=== PATIENT | male | born 1970 | race Caucasian/White ===

== ENCOUNTER → 2017-02-03 | Day surgery (SDC) | payer OTHER ==
[~2017-02-03] MED LIST: Ketorolac 30 MG/ML SDV ONE; Sodium Chloride 0.9% 100 ML ONE
--- NOTE | 2017-02-03 17:42 | PCM.PREANE ---
Preanesthetic Assessment - Anesthesia/Transfusion/Family Hx Anesthesia History: Prior Anesthesia Without Reaction Family History of Anesthesia Reaction: No Transfusion History: No Prior Transfusion(s) - Review of Systems General: No Symptoms Pulmonary: No Symptoms Cardiovascular: No Symptoms Gastrointestinal: Decreased Appetite Neurological: No Symptoms Other: Reports: None - Physical Assessment NPO Status Date: 02/03/17 NPO Status Time: 09:00 Pulse: 103 O2 Sat by Pulse Oximetry: 94 Respiratory Rate: 18 Blood Pressure: 161/87 Temperature: 36.8 C Vital Signs: Last Vital Signs Temp 36.8 C 02/03/17 17:24 Pulse 103 H 02/03/17 17:24 Resp 18 02/03/17 17:24 BP 161/87 H 02/03/17 17:24 Pulse Ox 94 L 02/03/17 17:24 Weight: 155.582 kg ASA Class: 2 Mental Status: Alert & Oriented x3 Airway Class: Mallampati = 1 Dentition: Reports: Normal Dentition Thyro-Mental Finger Breadths: 3 Mouth Opening Finger Breadths: 3 ROM/Head Extension: Full Lungs: Clear to Auscultation, Normal Respiratory Effort Cardiovascular: Regular Rate, Regular Rhythm, No Murmurs - Allergies Allergies/Adverse Reactions: Allergies Allergy/AdvReac Type Severity Reaction Status Date / Time No Known Allergies Allergy Verified 02/03/17 17:26 - Anesthesia Plan Pre-Op Medication Ordered: None - Acknowledgements Anesthesia Type Planned: MAC Pt an Appropriate Candidate for the Planned Anesthesia: Yes Alternatives and Risks of Anesthesia Discussed w Pt/Guardian: Yes Pt/Guardian Understands and Agrees with Anesthesia Plan: Yes PreAnesthesia Questionnaire Other Gastrointestinal History: hernia abdominal - SUBSTANCE USE Smoking Status *Q: Current Some Day Smoker Tobacco Use Within Last Twelve Months: Cigarettes Second Hand Smoke Exposure: Yes - HOME MEDS Home Medications: Home Meds Hydrocodone/Acetaminophen [Hydrocodon-Acetaminophn 10-325] 1 tab PO Q4H PRN [History] Omeprazole 20 mg PO DAILY 02/03/17 [History] Sulfamethoxazole/Trimethoprim [Bactrim Ds Tablet] 1 tab PO DAILY 02/03/17 [ History]
== END ==
LOC: JD.ED 17:20 → JD.SDS 17:41
PROVIDERS: ATTEND Surgery
DX: L02.31 Cutaneous abscess of buttock (principal); B19.20 Unspecified viral hepatitis C without hepatic coma; K29.60 Other gastritis without bleeding; F17.210 Nicotine dependence, cigarettes, uncomplicated; Z79.899 Other long term (current) drug therapy; Z90.49 Acquired absence of other specified parts of digestive tract
CPT/HCPCS: 10060; 99284; J7030; 00902

== ENCOUNTER 2017-08-05 08:00 | Day surgery (SDC) | payer BC ==
[~2017-08-05 08:00] MED LIST changes: -Ketorolac 30 MG/ML SDV ONE; +Lactated Ringers 1,000 ML IV SCH; +Lidocaine 1%/Sod Bicarbonate in NS 8.4% 1 ML Syringe IDERM PRN; +Lidocaine 1%/Sod Bicarbonate in NS 8.4% 1 ML Syringe IV PRN; +Lidocaine 1%/Sod Bicarbonate in NS 8.4% 1 ML Syringe PRN; +Sodium Chloride 0.9% 10 ML Syringe FLUSH PRN; -Sodium Chloride 0.9% 100 ML ONE
[2017-08-05] MEDS ORDERED: Lidocaine 1% with EPINEPHrine 1:100,000 20 ML MDV ONE (08:12)
[2017-08-05] MEDS ORDERED: Bupivacaine 0.5%/EPINEPHrine 1:200,000 50 ML MDV ONE (08:12)
--- NOTE | 2017-08-05 08:44 | PCM.PREANE ---
Preanesthetic Assessment - Anesthesia/Transfusion/Family Hx Anesthesia History: Prior Anesthesia Without Reaction Family History of Anesthesia Reaction: No Transfusion History: No Prior Transfusion(s) - Review of Systems General: No Symptoms Pulmonary: No Symptoms (Smoker, < 1 pack per day. Last cigarette yesterday evening. ) Cardiovascular: No Symptoms Gastrointestinal: Other (Heart burn controlled with his medications. Took omeprazole this morning. Denies current symptoms. ) Neurological: No Symptoms Other: Reports: None (Obesity ) - Physical Assessment NPO Status Date: 08/04/17 Pulse: 20 O2 Sat by Pulse Oximetry: 94 Respiratory Rate: 20 Blood Pressure: 144/75 Temperature: 36.6 C Weight: 150.593 kg ASA Class: 2 Mental Status: Alert & Oriented x3 Airway Class: Mallampati = 3 Dentition: Reports: Missing Tooth/Teeth, Caries Thyro-Mental Finger Breadths: 3 Mouth Opening Finger Breadths: 3 ROM/Head Extension: Full Lungs: Clear to Auscultation, Normal Respiratory Effort Cardiovascular: Regular Rate, Regular Rhythm - Allergies Allergies/Adverse Reactions: Allergies Allergy/AdvReac Type Severity Reaction Status Date / Time No Known Allergies Allergy Verified 08/04/17 14:17 - Acknowledgements Anesthesia Type Planned: General Anesthesia Pt an Appropriate Candidate for the Planned Anesthesia: Yes Alternatives and Risks of Anesthesia Discussed w Pt/Guardian: Yes Pt/Guardian Understands and Agrees with Anesthesia Plan: Yes PreAnesthesia Questionnaire HEENT History: Reports: None Cardiovascular History: Reports: None Respiratory History: Reports: SOB Other Gastrointestinal History: ventral hernia, pilonidal cyst with abcess, reflux gastritis Genitourinary History: Reports: None Musculoskeletal History: Reports: None Neurological History: Reports: None Psychiatric History: Reports: Addiction Endocrine/Metabolic History: Reports: None Hematologic History: Reports: None Immunologic History: Reports: None Oncologic (Cancer) History: Reports: None Dermatologic History: Reports: Cellulitis - Past Surgical History Head Surgeries/Procedures: Reports: None HEENT Surgical History: Reports: None Cardiovascular Surgical History: Reports: None Respiratory Surgical History: Reports: None GI Surgical History: Reports: Appendectomy Female Surgical History: Reports: None Male Surgical History: Endocrine Surgical History: Reports: None Neurological Surgical History: Reports: None Musculoskeletal Surgical History: Reports: None Oncologic Surgical History: Reports: None Dermatological Surgical History: Reports: None - SUBSTANCE USE Smoking Status *Q: Current Every Day Smoker Tobacco Use Within Last Twelve Months: Cigarettes Second Hand Smoke Exposure: Yes Recreational Drug Use History: No - HOME MEDS Home Medications: Home Meds Omeprazole 20 mg PO DAILY 02/03/17 [History] Ibuprofen 1 - 3 tab PO Q6H PRN 08/04/17 [History] Sulfamethoxazole/Trimethoprim [Bactrim 400-80 MG] 800,160 mg PO BID 08/05/17 [ History] - CURRENT (IN HOUSE) MEDS Current Meds: Current Medications Lactated Ringer's (Ringers, Lactated) 1,000 mls @ 125 mls/hr IV ASDIRECTED [facility] Stop: 08/05/17 23:00 Lidocaine/Sodium Bicarbonate (Buffered Lidocaine 1% In Ns 8.4%) 0.25 ml IDERM ONETIME PRN PRN Reason: Prior to IV Start Stop: 08/05/17 18:00 Sodium Chloride (Saline Flush) 10 ml FLUSH ASDIRECTED PRN PRN Reason: Keep Vein Open Stop: 08/05/17 18:00 Discontinued Medications Bupivacaine HCl/Epinephrine Bitart (Marcaine 0.5%/Epinephrine 1:200,000) Confirm Administered Dose 50 ml .ROUTE .STK-MED ONE Stop: 08/05/17 08:13 Lactated Ringer's (Ringers, Lactated) 1,000 mls @ 125 mls/hr IV ASDIRECTED [facility] Stop: 03/28/17 23:00 Lidocaine/Epinephrine (Xylocaine 1% With Epinephrine 1:100,000) Confirm Administered Dose 20 ml .ROUTE .STK-MED ONE Stop: 08/05/17 08:13 Lidocaine/Sodium Bicarbonate (Buffered Lidocaine 1% In Ns 8.4%) 0.25 ml IV ONETIME PRN PRN Reason: Prior to IV Start Lidocaine/Sodium Bicarbonate (Buffered Lidocaine 1% In Ns 8.4%) 0.25 ml .XX ONETIME PRN PRN Reason: Prior to IV Start Stop: 03/28/17 18:00 Sodium Chloride (Saline Flush) 10 ml FLUSH ASDIRECTED PRN PRN Reason: Keep Vein Open Stop: 03/28/17 18:00
[2017-08-05] MEDS ORDERED: Rocuronium 50 MG/5 ML Vial ONE (08:53)
[2017-08-05] MEDS ORDERED: Ondansetron 4 MG/2 ML SDV ONE (08:53)
[2017-08-05] MEDS ORDERED: Lidocaine 1% 4 ML ONE (08:53)
[2017-08-05] MEDS ORDERED: Propofol 200 MG/20 ML SDV ONE (08:53)
[2017-08-05] MEDS ORDERED: fentaNYL 250 MCG/5 ML SDV ONE (08:54)
[2017-08-05] MEDS ORDERED: ceFAZolin 1 GM Vial ONE ×2 (08:54→08:57)
[2017-08-05] MEDS ORDERED: Midazolam 1 MG/ML 2 ML SDV ONE (08:54)
[2017-08-05] MEDS ORDERED: Lanolin/Mineral Oil/Petrolatum Ophth Oint 3.5 GM Tube ONE (09:54)
[2017-08-05] MEDS ORDERED: Albuterol 6.7 GM Inhaler INH ONE (10:04)
[2017-08-05] MEDS ORDERED: Neostigmine Methylsulfate 1 MG/ML 5 ML Syringe ONE (10:11)
[2017-08-05] MEDS ORDERED: Ondansetron 4 MG/2 ML SDV IVPUSH PRN (10:13)
[2017-08-05] MEDS ORDERED: fentaNYL 100 MCG/2 ML SDV IVPUSH PRN (10:13)
[2017-08-05] MEDS ORDERED: HYDROmorphone 0.5 MG/0.5 ML Syringe IVPUSH PRN (10:13)
[2017-08-05] MEDS ORDERED: Lactated Ringers 1,000 ML ONE (10:24)
--- NOTE | 2017-08-05 10:42 | PCM.POSTAN ---
POST ANESTHESIA ASSESSMENT - MENTAL STATUS Mental Status: Alert, Oriented - VITAL SIGNS Pulse Rate: 82 SaO2: 94 Resp Rate: 23 Blood Pressure: 144/69 Temperature: 98.3 F - RESPIRATORY Respiratory Status: Respiratory Rate WNL, Airway Patent, O2 Saturation Stable, Supplemental Oxygen - CARDIOVASCULAR CV Status: Pulse Rate WNL, Blood Pressure Stable - GASTROINTESTINAL GI Status: No Symptoms - PAIN Pain Score: 0 - POST OP HYDRATION Hydration Status: Adequate & Stable
--- NOTE | 2017-08-05 10:42 | PCM.OPNOTE ---
- General Post-Op/Procedure Note Date of Surgery/Procedure: 08/05/17 Operative Procedure(s): Incision and drainage of a pilonidal abscess with unroofing of a long pilonidal sinus Findings: Right buttock small abscess containing 2 mL of pus. 2 long sinus tracts which were unroofed. 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 I clipper prepped the area of all hair. The intergluteal fold was then prepped with Betadine and draped sterilely. 10 mL of local analgesia was infused into the area of the pilonidal cyst and sinus. I probed the sinus tract and this revealed a 2 cm sinus. Just right lateral to the inter gluteal cleft there was a area of induration which drained 2 mL of pus once I opened the tract over the probe. I then opened a 5 cm area of the intergluteal fold in the midline and then carried this unroofing right laterally for about 3 cm with cautery. Hemostasis was obtained with cautery as well. The unroofing extended to yellow non-chronically inflamed or infected fat. I then packed the surgery site with 2 inch iodoform gauze. I didn't close the unroofing area because of the pus that was present.
[2017-08-05] MEDS ORDERED: Albuterol/Ipratropium 3.0-0.5 MG/3 ML Neb Soln NEB PRN (10:43)
--- NOTE | 2017-08-05 12:10 | PCM48HPAN ---
Post Anesthesia Note - EVALUATION WITHIN 48HRS OF ANESTHETIC Vital Signs in Normal Range: Yes Patient Participated in Evaluation: Yes Respiratory Function Stable: Yes Airway Patent: Yes Cardiovascular Function Stable: Yes Hydration Status Stable: Yes Pain Control Satisfactory: Yes Nausea and Vomiting Control Satisfactory: Yes Mental Status Recovered: Yes
[2017-08-05 14:19] VITALS: BP 129/69
== END 2017-08-05 12:15 | disposition home or self-care (01) ==
LOC: JD.SDS 08:00
PROVIDERS: ATTEND Surgery
DX: L05.01 Pilonidal cyst with abscess (principal); F17.210 Nicotine dependence, cigarettes, uncomplicated; K21.9 Gastro-esophageal reflux disease without esophagitis; Z79.899 Other long term (current) drug therapy
CPT/HCPCS: 94640; A9270; A9270-GY; J0690; J2250; J2405; J2704; J2710; J3010; J7120

== ENCOUNTER 2021-01-01 18:00 | Emergency (ER) | payer BC ==
--- NOTE | 2021-01-01 18:39 | EDM.PDOC ---
ED HPI GENERAL MEDICAL PROBLEM - General Chief Complaint: Lower Extremity Injury/Pain Stated Complaint: LEG PAIN SWELLING AND HOT Time Seen by Provider: 01/01/21 18:37 Source of Information: Reports: Patient History Limitations: Reports: No Limitations - History of Present Illness INITIAL COMMENTS - FREE TEXT/NARRATIVE: Patient is a 50-year-old male who is complaining of having pain to his right upper calf after stepping off the back of a truck 2 weeks ago and hyperflexing his ankle. At time of injury patient heard and felt a popping sensation in his pain since. He is able to ambulate with limited activity every time he fully flexes the ankle he has pain in the upper calf. Patient does drive a truck for living but based on his story I feel this was traumatic in nature and is not a DVT. There is been no change in warmth or color of his lower extremity. Patient does have some tingling down to his foot since the injury. He denies any shortness of breath or Covid symptoms. He is not have a cough. He has no chest pain. Duration: Week(s): (two) Location: Reports: Lower Extremity, Right Quality: Reports: Ache, Dull Severity: Moderate Improves with: Reports: Rest Worsens with: Reports: Movement Context: Reports: Trauma Associated Symptoms: Reports: No Other Symptoms - Related Data Allergies Allergy/AdvReac Type Severity Reaction Status Date / Time No Known Allergies Allergy Verified 12/15/18 13:59 Home Meds: Home Meds Omeprazole 20 mg PO DAILY 02/03/17 [History] Lidocaine 5% [Lidoderm 5%] 1 patch TOP DAILY PRN #10 patch 01/01/21 [Rx] Past Medical History HEENT History: Reports: None Cardiovascular History: Reports: None Respiratory History: Reports: None Gastrointestinal History: Reports: Gastritis, Other (See Below) Other Gastrointestinal History: Umbilical hernia, ventral hernia Genitourinary History: Reports: None Musculoskeletal History: Reports: None Neurological History: Reports: None Psychiatric History: Reports: Addiction, Other (See Below) Other Psychiatric History: Substance abuse Endocrine/Metabolic History: Reports: None Hematologic History: Reports: None Immunologic History: Reports: None Oncologic (Cancer) History: Reports: None Dermatologic History: Reports: None - Infectious Disease History Infectious Disease History: Reports: Hepatitis C Other Infectious Disease History: Patient completed 4 month therapy for Hepatitis C and is now clear - Past Surgical History Head Surgeries/Procedures: Reports: None HEENT Surgical History: Reports: None Cardiovascular Surgical History: Reports: None Respiratory Surgical History: Reports: None GI Surgical History: Reports: Appendectomy Male Surgical History: Reports: None Endocrine Surgical History: Reports: None Neurological Surgical History: Reports: None Musculoskeletal Surgical History: Reports: None Oncologic Surgical History: Reports: None Dermatological Surgical History: Reports: None Social & Family History - Caffeine Use Caffeine Use: Reports: Coffee Review of Systems - Review of Systems Review Of Systems: Comprehensive ROS is negative, except as noted in HPI. Respiratory: Reports: No Symptoms Cardiovascular: Reports: No Symptoms Musculoskeletal: Reports: Leg Pain, Muscle Pain. Denies: Joint Swelling Skin: Reports: No Symptoms. Denies: Cyanosis, Mottled, Pallor, Erythema, Change in Color ED EXAM, GENERAL - Physical Exam Exam: See Below Exam Limited By: No Limitations General Appearance: Alert, No Apparent Distress Head: Normocephalic Neck: Supple Respiratory/Chest: No Respiratory Distress Back Exam: Full Range of Motion Extremities: Leg Pain. No: Pedal Edema, Slow Capillary Refill, Joint Swelling, Limited Range of Motion, Increased Warmth, Redness Neurological: Alert, Oriented Psychiatric: Normal Affect Skin Exam: Warm, Dry Course - Vital Signs Text/Narrative:: I believe this is a partial gastrocnemius tear. I am recommending Lidoderm and Voltaren [id number] gel. Crutches while having pain and limited duty as needed. Follow-up with orthopedic provider if not improving return to ER symptoms are worse. Last Recorded V/S: Last Vital Signs Temp 99.1 F 01/01/21 18:16 Pulse 87 01/01/21 18:16 Resp 16 01/01/21 18:16 BP 161/106 H 01/01/21 18:16 Pulse Ox 95 01/01/21 18:16 - Orders/Labs/Meds Orders: Active Orders 24 hr Category Date Time Status Lidocaine 4% [Aspercreme 4%] Med 01/01/21 19:05 Ordered 1 each TOP DAILY PRN Medication Orders Lidocaine (Lidocaine 4% 1 Each Patch) 1 each TOP DAILY PRN PRN Reason: Pain Meds: Medications Generic Name Dose Route Start Last Admin Trade Name Freq PRN Reason Stop Dose Admin Lidocaine 1 each 01/01/21 19:05 Lidocaine 4% 1 Each Patch TOP DAILY PRN Pain Departure - Departure Time of Disposition: 19:13 Disposition: Home, Self-Care 01 Condition: Good Clinical Impression: Rupture of muscle - Discharge Information Instructions: Muscle Strain, [id number] Referrals: Raegan Perez PA-C [Primary Care Provider] - Forms: ED Department Discharge Additional Instructions: Ice and/or heat as needed. Ibuprofen with meals. [id number] Voltaren gel. Lidoderm patch if helping. Crutches while having pain. Limited duty at work. Follow-up with orthopedic provider if not improving. Return to ER if symptoms are worse. Sepsis Event Note (ED) - Focused Exam Vital Signs: Vital Signs Temp Pulse Resp BP Pulse Ox 01/01/21 18:16 99.1 F 87 16 161/106 H 95 - My Orders Last 24 Hours: My Active Orders 01/01/21 19:05 Lidocaine 4% [Aspercreme 4%] 1 each TOP DAILY PRN - Assessment/Plan Last 24 Hours: My Active Orders 01/01/21 19:05 Lidocaine 4% [Aspercreme 4%] 1 each TOP DAILY PRN
[2021-01-01] MEDS ORDERED: Lidocaine 4% 1 each Patch TOP PRN (19:00)
== END 2021-01-01 19:15 | disposition home or self-care (01) ==
LOC: JD.ED 18:00
DX: S86.111A Strain of other muscle(s) and tendon(s) of posterior muscle group at lower leg level, right leg, initial encounter (principal); Z79.899 Other long term (current) drug therapy; X50.1XXA Overexertion from prolonged static or awkward postures, initial encounter
CPT/HCPCS: 99283